=== PATIENT | female | born 1945 | race Caucasian/White ===

== ENCOUNTER 2018-11-03 08:58 | Outpatient (CLI) | payer MEDICARE ==
--- NOTE | 2018-11-03 09:56 | MMO ---
Bilateral MAMMO Bilat Screen [facility]. CLINICAL HISTORY: Patient is 73 years old and is seen for screening. The patient has no family history of breast cancer. The patient has a history of endometrial cancer. VIEWS: The views performed were: bilateral craniocaudal with tomosynthesis; bilateral mediolateral oblique with tomosynthesis; and bilateral exaggerated craniocaudal. FILMS COMPARED: The present examination has been compared to prior imaging studies performed at [facility] on 10/28/2006, 05/24/2008, 05/27/2009, 10/18/2013, 03/26/2015, 05/20/2016 and 04/21/2017, and at [facility] [place] on 11/19/2010, 12/02/2010 and 03/22/2012. MAMMOGRAM FINDINGS: The breasts are heterogeneously dense, which could obscure a lesion on mammography. There are benign appearing calcifications seen in both breasts. There are no suspicious masses, suspicious calcifications, or new areas of architectural distortion. IMPRESSION: THERE IS NO MAMMOGRAPHIC EVIDENCE OF MALIGNANCY. A ROUTINE FOLLOW-UP MAMMOGRAM IN 1 YEAR IS RECOMMENDED. THE RESULTS OF THIS EXAM WERE SENT TO THE PATIENT. ACR BI-RADS Category 2 - Benign finding MAMMOGRAPHY NOTE: 1. A negative mammogram report should not delay a biopsy if a dominant of clinically suspicious mass is present. 2. Approximately 10% to 15% of breast cancers are not detected by mammography. 3. Adenosis and dense breasts may obscure an underlying neoplasm.
--- NOTE | 2018-11-03 10:10 | BD ---
Exam: DEXA Bone Density Indication: 73-year-old female for post-menopausal osteoporosis screening. Lumbar Spine: BMD (g/cm2) L1 0.859 T-Score: -1.2 L2 1.113 T-Score: 0.8 L3 1.018 T-Score: -0.6 L4 0.973 T-Score: -0.8 L1-L4 0.988 T-Score: -0.5 Femoral Neck: 0.723 T-Score: -1.1 Total Femur: 0.901 T-Score: -0.3 Impression: 1. Bone mineral density of the femoral neck indicates osteopenia. 2. Bone mineral density of the lumbar spine within normal range. 10-year fracture risk: Major osteoporotic fracture: 12% Hip fracture: 1.7% POS: [facility]
== END 2018-11-03 08:59 | disposition home or self-care (01) ==
LOC: BICMAMMO 08:58
PROVIDERS: ATTEND Family Medicine
DX: Z12.31 Encounter for screening mammogram for malignant neoplasm of breast (principal); Z78.0 Asymptomatic menopausal state; Z01.411 Encounter for gynecological examination (general) (routine) with abnormal findings; M85.89 Other specified disorders of bone density and structure, multiple sites; Z85.89 Personal history of malignant neoplasm of other organs and systems; Z90.710 Acquired absence of both cervix and uterus
CPT/HCPCS: 77063; 77067; 77080

== ENCOUNTER 2020-01-20 02:15 | Day surgery (SDC) | payer MEDICARE ==
--- NOTE | 2020-01-20 04:18 | HP ---
DATE OF CONSULTATION: 01/20/2020 CONSULTING PROVIDER: Dr. Estevez. REASON FOR CONSULTATION: Esophageal food bolus impaction. HISTORY OF PRESENT ILLNESS: The patient is a 74-year-old female with past medical history of hypertension, osteoarthritis, impaired fasting glucose, hyperlipidemia, uterine cancer (2008), and GERD, presenting with complaints of dysphagia. She states that she was in her usual state of health until approximately 6:30 yesterday evening when she was eating steak and upon her first bite of eating steak, had a sensation that the food got stuck, located at the level of the sternal notch. Attempts to drink water, take Rolaids, drink soda were ultimately unsuccessful and ultimately prompted her to seek healthcare assistance at the [place] [facility]. While in the [place] [facility], they attempted the use of glucagon, which was also unsuccessful and ultimately transferred to [facility] in [place] for further evaluation. Upon further questioning the patient, she states that this has been happening intermittently for the last 10 years with most recent occurrence being approximately 6 months ago. However, the episodes that she has had in the past have not lasted any longer than 30 minutes and have responded to eating or drinking food stuffs in order to force the food bolus into her stomach. Currently, she states that she is unable to tolerate her own secretions and did have a cup full of saliva at bedside and this was associated with nausea and vomiting as well as odynophagia. However, she currently denies any fevers, chills, hematemesis, melena, hematochezia, diarrhea, abdominal pain, or constipation. REVIEW OF SYSTEMS: A 10-category review of systems was obtained with all responses negative except for the pertinent positives as listed in HPI. PAST MEDICAL HISTORY: As per HPI. PAST SURGICAL HISTORY: Hysterectomy. FAMILY HISTORY: Uterine cancer only in her mother, she denies any GI malignancies. SOCIAL HISTORY: Denies any tobacco, alcohol, or illicit drug use. OUTPATIENT MEDICATIONS: 1. Metoprolol 50 mg daily. 2. Lisinopril 25 mg daily. 3. Atorvastatin, unknown dosage. 4. Etodolac 400 mg daily. 5. Sinus medication. ALLERGIES: NO KNOWN DRUG ALLERGIES. PHYSICAL EXAMINATION: VITAL SIGNS: No vital signs were posted in the patient's chart for review. GENERAL: The patient was lying in bed, in no acute distress. Alert and oriented x4. HEENT: Normocephalic and atraumatic. NECK: Supple. No JVD or scleral icterus noted. CARDIOVASCULAR: Regular rate and rhythm with no discernible murmurs, gallops, or rubs. RESPIRATORY: Clear to auscultation bilaterally with no discernible wheezes or rales. ABDOMEN: Normoactive bowel sounds. Soft, nontender, and nondistended. EXTREMITIES: No cyanosis, clubbing, or edema. LABORATORY DATA: CBC with a white blood cell count of 15.3, hemoglobin 13.5, hematocrit 42.5, platelets 282. Chemistry with a sodium of 140, potassium 3.6, chloride 103, CO2 of 26, BUN 19, creatinine 0.79, glucose 152. IMAGING DATA: No current GI imaging is available for review. ASSESSMENT AND PLAN: The patient is a 74-year-old female with past medical history of hypertension, osteoarthritis, impaired fasting glucose, hyperlipidemia, uterine cancer, and gastroesophageal reflux disease, presenting with symptoms of dysphagia consistent with a food bolus impaction. Dysphagia/food bolus impaction: The patient is presenting with sudden onset of dysphagia occurring at 6:30 p.m. last night after the ingestion of steak, characterized as the sensation of it getting stuck at the level of the sternal notch. On further review, the patient has been having intermittent symptoms over the last decade with the most recent occurrence being six months ago, but all of the prior incidences resolving themselves spontaneously within 30 minutes. However, in this case, her symptoms did not resolve and manifested as odynophagia and inability to tolerate her own secretions. Attempts at drinking water, taking Rolaids, drinking soda as well as administration of glucagon at the [place] [facility] were unsuccessful. At this time, her symptoms are most consistent with a food bolus impaction with the etiology including esophageal stricture/stenosis, eosinophilic esophagitis, GERD, and/or GI neoplasm. RECOMMENDATIONS: 1. Would continue the patient at n.p.o. status in anticipation for emergent EGD. 2. Would perform emergent EGD for evaluation of the food bolus and extraction at that time. 3. The patient will likely need to be discharged on a PPI for her acid reflux symptoms, which could be potentially generating her current clinical situation. 4. Further recommendations to follow upper endoscopy. We will continue to follow. Please call with any questions. Job ID: [id number]
--- NOTE | 2020-01-20 05:08 | OP ---
DATE OF PROCEDURE: 01/20/2020 PROCEDURE PERFORMED: Esophagogastroduodenoscopy with food bolus obstruction. INDICATION FOR PROCEDURE: Esophageal food bolus obstruction/esophageal obstruction. DESCRIPTION OF PROCEDURE: After the risks and benefits of the procedure were explained to the patient including risks of bleeding, infection, perforation, reactions to anesthesia, aspiration, and/or pain, informed consent was obtained. The patient was then taken to the endoscopy suite, where she underwent general anesthesia with endotracheal tube intubation. Once the patient was sedated and intubated, she was maneuvered into the left lateral decubitus position, followed by introduction of the standard gastroscope, which was then advanced into the mouth with intubation of the esophagus, stomach, and the proximal small intestines with the findings listed below. The patient tolerated the procedure well with no immediate perioperative complications. Upon conclusion of the procedure, all equipment was removed from the patient and she was transferred to PACU in satisfactory condition. FINDINGS: Esophagus: Normal-appearing mucosa was seen in the proximal and mid esophagus; however, in the distal esophagus, a large fibrous food bolus was seen completely obstructing the esophageal lumen. Attempts at gentle pressure of the food bolus were unsuccessful in moving the bolus into the stomach. As such, Raptor forceps and Sg forceps were employed to successfully break apart and remove the food bolus via the mouth. Once the food bolus was successfully extracted, evaluation of the underlying mucosa was performed. Just proximal to the gastroesophageal junction, there was significant luminal narrowing and swelling that initially impeded the passage of the scope with increased resistance with passage, but was able to be traversed with the standard gastroscope. Ulceration and increased friability were also seen in this region with some mucosal sloughing. Based on the significant injury and swelling to this region, esophageal dilation was not performed due to increased risk of perforation. Otherwise, there was no evidence of mass lesions or active/recent bleeding. Stomach: Normal-appearing mucosa was seen in the gastric cardia, fundus, body, greater curvature, antrum, and incisura. There was no evidence of erosions, ulcerations, mass lesions, or active/recent bleeding. Duodenum: Normal-appearing mucosa was seen in both the duodenal bulb and second portion of the duodenum. There was no evidence of erosions, ulcerations, mass lesions, or active/recent bleeding. IMPRESSION: 1. Large esophageal food bolus in the distal esophagus successfully extracted with Raptor and Sg forceps. 2. Distal esophageal stricture just proximal to the GE junction consistent with either an esophageal stricture or swelling related to the food bolus impaction. This was also associated with ulceration, sloughing of the mucosa and increased friability with mild oozing of blood (no dilation performed today). RECOMMENDATIONS: 1. Would start the patient on a liquid diet for the next 48 hours and advance as tolerated to a soft mechanical diet until seen in the GI clinic. 2. Would place the patient on omeprazole 40 mg daily for potential acid reflux. 3. Would strongly encourage adequate chewing of food prior to swallowing. 4. Would have the patient follow up in the GI clinic within two weeks for re-evaluation of her dysphagia and scheduling for repeat upper endoscopy with likely dilation of the distal esophagus. 5. Once met PACU criteria, the patient could be discharged to home with followup in the GI Clinic. We will sign off at this time. Please call with any questions. Job ID: [id number]
[2020-01-20] MEDS ORDERED: PHENYLEPHRINE-NS 100 MCG/ML 10 ML SYRINGE ONE (11:53)
[2020-01-20] MEDS ORDERED: EPHEDRINE 25 MG/5 ML SYRINGE ONE (11:53)
[2020-01-20] MEDS ORDERED: PROPOFOL 200 MG/20 ML VIAL ONE (11:53)
[2020-01-20] MEDS ORDERED: Lidocaine 1% PF 5 ML VIAL ONE (11:53)
[2020-01-20] MEDS ORDERED: Ondansetron PF 4 MG/2 ML Vial ONE (11:53)
[2020-01-20] MEDS ORDERED: Succinylcholine Chloride 20 MG/ML 10 ml SYRINGE FS ONE (11:53)
[2020-01-20] MEDS ORDERED: Dexamethasone 20 MG/5 ML VIAL ONE (11:53)
== END 2020-01-20 05:36 | disposition home or self-care (01) ==
LOC: ERS 02:15 → SDC/OP 03:36
PROVIDERS: ATTEND Internal Medicine
PROC: 0DC38ZZ Extirpation of Matter from Lower Esophagus, Via Natural or Artificial Opening Endoscopic (ICD-10-PCS; principal; 2020-01-20)
DX: T18.128A Food in esophagus causing other injury, initial encounter (principal); K22.2 Esophageal obstruction; K22.10 Ulcer of esophagus without bleeding; I10 Essential (primary) hypertension; M19.90 Unspecified osteoarthritis, unspecified site; E78.5 Hyperlipidemia, unspecified; K21.9 Gastro-esophageal reflux disease without esophagitis; E11.9 Type 2 diabetes mellitus without complications; E78.00 Pure hypercholesterolemia, unspecified; Z79.84 Long term (current) use of oral hypoglycemic drugs; Z79.899 Other long term (current) drug therapy; X58.XXXA Exposure to other specified factors, initial encounter
CPT/HCPCS: J1100; J2001; J2405; J2704

== ENCOUNTER 2020-11-15 10:37 | Outpatient (CLI) | payer MEDICARE ==
[2020-11-15 11:33] LABS: Hemoglobin 13.2 g/dL (12.0-15.5)
[2020-11-15 11:47] LABS: Anion Gap 15 mmol/L (10-20); BUN (Urea Nitrogen) 18 mg/dL (9.8-20.1); Calc. Creatinine Clearance 0 mL/min (70-130); Calcium 9.7 mg/dL (7.8-10.44); Carbon Dioxide 28 mmol/L (23-31); Chloride 101 mmol/L (98-107); Glucose 95 mg/dL (83-110); Potassium 3.8 mmol/L (3.5-5.1); Sodium 140 mmol/L (136-145)
[2020-11-15 17:49] LABS: SARS-CoV-2 PCR by NAA Not Detected (NotDetected)
== END 2020-11-15 10:38 | disposition home or self-care (01) ==
LOC: LABBT 10:37
PROVIDERS: ATTEND Otolaryngology Plastic Surgery within the Head & Neck
DX: Z01.818 Encounter for other preprocedural examination (principal); J34.2 Deviated nasal septum; J34.89 Other specified disorders of nose and nasal sinuses; J34.3 Hypertrophy of nasal turbinates; R09.81 Nasal congestion; Z20.822 Contact with and (suspected) exposure to COVID-19
CPT/HCPCS: 80048; 85014; 85018; 93005; U0003; U0005; 87635; 93010

== ENCOUNTER 2020-11-20 08:24 | Day surgery (SDC) | payer MEDICARE ==
[2020-11-18 13:57] VITALS: BMI 22.4
[2020-11-20] MEDS ORDERED: AFRIN NASAL MIST 15 ML BOT ONE ×2 (08:57→10:30)
[2020-11-20] MEDS ORDERED: Bacitracin Zinc Ointment 30 gm TUBE ONE (10:30)
[2020-11-20] MEDS ORDERED: Lidocaine 1% w/Epinephrine 1:100K 20 ML VIAL ONE (10:30)
[2020-11-20] MEDS ORDERED: Famotidine/PF 20 mg/2ml Vial ONE (10:42)
[2020-11-20] MEDS ORDERED: Fentanyl 100 MCG/2 ML VIAL ONE ×2 (10:42→12:38)
[2020-11-20] MEDS ORDERED: SUGAMMADEX SODIUM 200 MG/2 ML VIAL ONE (10:52)
[2020-11-20] MEDS ORDERED: ePHEDrine Sulfate 50 MG/10 ML VIAL ONE (11:09)
[2020-11-20] MEDS ORDERED: Lidocaine 1% PF 5 ML VIAL ONE (11:09)
[2020-11-20] MEDS ORDERED: Metoclopramide HCl 10 MG/2 ML VIAL ONE (11:09)
[2020-11-20] MEDS ORDERED: Ondansetron PF 4 MG/2 ML Vial ONE (11:09)
[2020-11-20] MEDS ORDERED: Rocuronium Bromide 10 MG/ML (10ML VIAL) ONE (11:09)
[2020-11-20] MEDS ORDERED: PROPOFOL 200 MG/20 ML VIAL ONE (11:09)
[2020-11-20] MEDS ORDERED: Dexamethasone 20 MG/5 ML VIAL ONE (11:09)
[2020-11-20] MEDS ORDERED: PHENYLEPHRINE-NS 100 MCG/ML 10 ML SYRINGE ONE (11:09)
[2020-11-20] MEDS ORDERED: Hydrocodone-Acetamin 15 ML UDCUP ONE (14:35)
== END 2020-11-20 15:05 | disposition home or self-care (01) ==
LOC: SDC 08:24
PROVIDERS: ATTEND Otolaryngology Plastic Surgery within the Head & Neck
PROC: 09SM0ZZ Reposition Nasal Septum, Open Approach (ICD-10-PCS; principal; 2020-11-20)
PROC: 09TL0ZZ Resection of Nasal Turbinate, Open Approach (ICD-10-PCS; 2020-11-20)
PROC: 09QK0ZZ Repair Nasal Mucosa and Soft Tissue, Open Approach (ICD-10-PCS; 2020-11-20)
PROC: 095KXZZ Destruction of Nasal Mucosa and Soft Tissue, External Approach (ICD-10-PCS; 2020-11-20)
DX: J34.89 Other specified disorders of nose and nasal sinuses (principal); J34.2 Deviated nasal septum; J34.3 Hypertrophy of nasal turbinates; J30.0 Vasomotor rhinitis; E11.9 Type 2 diabetes mellitus without complications; M19.90 Unspecified osteoarthritis, unspecified site; Z79.899 Other long term (current) drug therapy
CPT/HCPCS: J1100; J2405; J2704; J2765; J3010; S0028

== ENCOUNTER 2022-07-18 10:54 | Inpatient (IN) | payer MEDICARE, OTHER ==
[2022-07-18 11:53] LABS: #Eosinphils 0.1 thou/uL (0.0-0.7); #Lymphocytes 2.2 thou/uL (1.20-3.40); #Monocytes 0.7 thou/uL (0.11-0.59); #Neutrophils 4.8 thou/uL (1.40-6.50); %Basophils 0.1 % (0.0-1.0); %Eosinophils 0.8 % (0.0-10.0); %Lymphocytes 27.9 % (21.0-51.0); %Monocytes 8.7 % (0.0-10.0); %Neutrophils 62.5 % (42.0-75.0); Hemoglobin 12.6 g/dL (12.0-16.0); Mean Corpuscular HGB CONC 32.7 g/dL (32.0-36.0); Mean Corpuscular Hemoglobin 29.1 pg (27.0-31.0); Mean Corpuscular Volume 89.1 fl (78.0-98.0); Mean Platelet Volume 7.9 fL (7.4-10.4); Platelet Count 259 10x3/uL (130-400); Red Blood Cell (RBC) Count 4.31 mill/uL (4.20-5.40); White Blood Cell (WBC) Count 7.7 10x3/uL (4.8-10.8)
[2022-07-18 12:14] LABS: ALT (SGPT) 27 U/L (8-55); AST (SGOT) 20 U/L (5-34); Albumin 3.9 g/dL (3.4-4.8); Alkaline Phosphatase 109 U/L (40-110); Anion Gap 16 mmol/L (10-20); BUN (Urea Nitrogen) 28 mg/dL (9.8-20.1); Bilirubin, Total 0.7 mg/dL (0.2-1.2); Calc. Creatinine Clearance 0 mL/min (70-130); Calcium 10.6 mg/dL (7.8-10.44); Carbon Dioxide 26 mmol/L (23-31); Chloride 105 mmol/L (98-107); Estimated GFR 91; Globulin 3.6 g/dL (2.4-3.5); Glucose 158 mg/dL (83-110); Lipase 44 U/L (8-78); Potassium 4.5 mmol/L (3.5-5.1); Protein, Total 7.5 g/dL (5.8-8.1); Sodium 142 mmol/L (136-145)
[2022-07-18 12:40] LABS: Bilirubin Negative (Negative); Blood, Urine Negative (Negative); Clarity Clear (Clear); Glucose, Urine (Dipstick) Normal (Negative); Ketone, Urine Negative (Negative); Leukocyte Negative Leu/uL (Negative); Nitrite Negative (Negative); Protein, Urine (Dipstick) Negative (Neg-Trace); Specific Gravity, Urine 1.014 (1.002-1.036); Urobilinogen Normal mg/dL (Less than 2); pH, Urine 5.5 (5.0-9.0)
[2022-07-18] MEDS ORDERED: Senokot S 8.6-50 MG TAB PO PRN (13:59)
[2022-07-18] MEDS ORDERED: Guaifenesin DM 100-10/5 ML UDCUP PO PRN (13:59)
[2022-07-18] MEDS ORDERED: HYDROcodone/Acetaminophen 5/325 mg Tablet PO PRN (13:59)
[2022-07-18] MEDS ORDERED: Ondansetron PF 4 MG/2 ML Vial IVP PRN (13:59)
[2022-07-18] MEDS ORDERED: Acetaminophen 325 MG TAB PO PRN (13:59)
[2022-07-18] MEDS ORDERED: Iopamidol-370 76% 500 ML 1 ML ONE (14:59)
[2022-07-18] MEDS ORDERED: Hydrocortisone Sod Succ/PF 250 mg/2 ml Vial SLOW IVP SCH (15:15)
[2022-07-18] MEDS ORDERED: Sodium Chloride 0.9% 1,000 ML IV SCH (15:15)
[2022-07-18 16:14] VITALS: BMI 19.1
[2022-07-18] MEDS: Methimazole 5 MG TAB PO SCH (19:54)
[2022-07-18] MEDS: Propranolol 40 MG TAB PO SCH (19:54)
[2022-07-18] MEDS ORDERED: Propranolol 40 MG TAB PO SCH (21:00)
[2022-07-19 05:37] LABS: ALT (SGPT) 22 U/L (8-55); AST (SGOT) 14 U/L (5-34); Albumin 3.4 g/dL (3.4-4.8); Alkaline Phosphatase 95 U/L (40-110); Anion Gap 13 mmol/L (10-20); BUN (Urea Nitrogen) 23 mg/dL (9.8-20.1); Bilirubin, Total 0.7 mg/dL (0.2-1.2); Calc. Creatinine Clearance 74 mL/min (70-130); Calcium 9.7 mg/dL (7.8-10.44); Carbon Dioxide 24 mmol/L (23-31); Chloride 108 mmol/L (98-107); Estimated GFR 95; Globulin 3.1 g/dL (2.4-3.5); Glucose 109 mg/dL (83-110); Potassium 3.6 mmol/L (3.5-5.1); Protein, Total 6.5 g/dL (5.8-8.1); Sodium 141 mmol/L (136-145)
[2022-07-19] MEDS: Hydrocortisone Sod Succ/PF 100 mg/2 ml Vial IVP SCH ×3 (05:51→20:34)
[2022-07-19 05:53] LABS: Free T4 (Free Thyroxine) 3.17 ng/dL (0.70-1.48)
[2022-07-19] MEDS ORDERED: Enoxaparin Sodium 40 MG/0.4 ML SYRINGE SC SCH (09:00)
[2022-07-19] MEDS ORDERED: Lisinopril 20 MG TAB PO SCH ×2 (09:00→21:00)
[2022-07-19] MEDS: Atorvastatin Calcium 10 MG TAB PO SCH (09:06)
[2022-07-19] MEDS: Propranolol 40 MG TAB PO SCH ×3 (09:06→20:32)
[2022-07-19] MEDS: Methimazole 5 MG TAB PO SCH ×2 (09:07→20:33)
[2022-07-19] MEDS: Fluticasone Propionate Nasal Spray 16 gm Bottle NASAL PRN (12:11)
[2022-07-20] MEDS: Hydrocortisone Sod Succ/PF 100 mg/2 ml Vial IVP SCH (05:34)
[2022-07-20] MEDS ORDERED: ALPRAZolam 0.25 MG TAB PO PRN (08:38)
[2022-07-20] MEDS ORDERED: cloNIDine 0.1 MG TAB PO PRN (08:39)
[2022-07-20] MEDS ORDERED: Atenolol 50 MG TAB PO SCH (09:00)
[2022-07-20] MEDS ORDERED: Lisinopril/Hydrochlorothiazide 20 mg/12.5 mg Tablet PO SCH (09:00)
[2022-07-20] MEDS ORDERED: Heparin 5,000 UNITS/ML VIAL SC SCH (09:00)
[2022-07-20] MEDS: Atorvastatin Calcium 10 MG TAB PO SCH (09:51)
[2022-07-20] MEDS: Methimazole 5 MG TAB PO SCH (09:52)
[2022-07-20] MEDS: Fluticasone Propionate Nasal Spray 16 gm Bottle NASAL PRN (09:57)
[2022-07-20 13:39] VITALS: BP 148/70; TEMP 98
== END 2022-07-20 14:40 | disposition home or self-care (01) | DRG 644 ==
LOC: ERS 10:54 → 2SW 13:59 → OBSVTOIN 15:09
PROVIDERS: ADMIT Hospitalist; ATTEND Internal Medicine
DX: E05.91 Thyrotoxicosis, unspecified with thyrotoxic crisis or storm (principal); Z68.1 Body mass index [BMI] 19.9 or less, adult; Z20.822 Contact with and (suspected) exposure to COVID-19; I10 Essential (primary) hypertension; E78.5 Hyperlipidemia, unspecified; R73.03 Prediabetes; R63.4 Abnormal weight loss; Z90.710 Acquired absence of both cervix and uterus; Z79.899 Other long term (current) drug therapy
CPT/HCPCS: 36415; 71045; 71260; 74177; 76536; 80053; 81003; 83690; 83880; 84439; 84443; 84481; 84484; 85025; 85379; 93005; 93306; J1644; J1650; J1720; J7050; Q9967; U0003; U0005

== ENCOUNTER 2022-12-15 16:49 | Emergency (ER) | payer MEDICARE ==
[~2022-12-15 16:49] MED LIST: Iopamidol-370 76% 500 ML MDV (1 ML CHARGE) ONE
[2022-12-15 17:44] LABS: #Monocytes 1.2 thou/uL (0.11-0.59); #Neutrophils 14.1 thou/uL (1.40-6.50); %Basophils 0.2 % (0.0-1.0); %Lymphocytes 11.1 % (21.0-51.0); %Monocytes 7.2 % (0.0-10.0); %Neutrophils 81.2 % (42.0-75.0); Hemoglobin 13.2 g/dL (12.0-16.0); Mean Corpuscular HGB CONC 33.1 g/dL (32.0-36.0); Mean Corpuscular Hemoglobin 28.7 pg (27.0-31.0); Mean Corpuscular Volume 86.7 fl (78.0-98.0); Mean Platelet Volume 9.1 fL (7.4-10.4); Platelet Count 268 10x3/uL (130-400); RBC Distribution Width 12.7 % (11.5-14.5); White Blood Cell (WBC) Count 17.3 10x3/uL (4.8-10.8)
[2022-12-15 18:06] LABS: ALT (SGPT) 15 U/L (8-55); AST (SGOT) 14 U/L (5-34); Alkaline Phosphatase 173 U/L (40-110); Anion Gap 15 mmol/L (10-20); BUN (Urea Nitrogen) 19 mg/dL (9.8-20.1); Bilirubin, Total 0.8 mg/dL (0.2-1.2); Calc. Creatinine Clearance 0 mL/min (70-130); Calcium 9.2 mg/dL (7.8-10.44); Carbon Dioxide 23 mmol/L (23-31); Chloride 100 mmol/L (98-107); Estimated GFR 69; Globulin 3.9 g/dL (2.4-3.5); Glucose 169 mg/dL (83-110); Lipase 17 U/L (8-78); Potassium 3.5 mmol/L (3.5-5.1); Protein, Total 7.9 g/dL (5.8-8.1); Sodium 134 mmol/L (136-145)
[2022-12-15 19:10] LABS: Bilirubin Negative (Negative); Blood, Urine Negative (Negative); Clarity Turbid (Clear); Glucose, Urine (Dipstick) Normal (Negative); Ketone, Urine Negative (Negative); Leukocyte 500 Leu/uL (Negative); Mucous/LPF Rare LPF (<2+); Nitrite Negative (Negative); Protein, Urine (Dipstick) 20 mg/dL (Neg-Trace); RBC/HPF 0-3 HPF (0-3); Renal Epithelial 0-3 HPF (None Seen); Specific Gravity, Urine 1.024 (1.002-1.036); Urobilinogen Normal mg/dL (Less than 2); pH, Urine 5.5 (5.0-9.0)
[2022-12-15 19:27] LABS: Bacteria/HPF 2+ HPF (None Seen)
[2022-12-16 11:23] LABS: Campy jejuni + coli by PCR POSITIVE (Negative); STEC Shiga Toxin 1+2 Negative (Negative); Salmonella spp. by PCR Negative (Negative); Shigella spp + EIEC by PCR Negative (Negative)
== END 2022-12-15 20:12 | disposition home or self-care (01) ==
LOC: ERS 16:49
DX: R19.7 Diarrhea, unspecified (principal); N39.0 Urinary tract infection, site not specified; D72.829 Elevated white blood cell count, unspecified; E78.00 Pure hypercholesterolemia, unspecified; I10 Essential (primary) hypertension; E03.9 Hypothyroidism, unspecified
CPT/HCPCS: 36415; 74177; 80053; 81003; 81015; 83690; 85025; 87505; Q9967

== ENCOUNTER 2023-03-17 09:09 | Outpatient (CLI) | payer MEDICARE | END 2023-03-17 09:10 | disposition home or self-care (01) | LOC: BICMAMMO 09:09 | PROVIDERS: ATTEND Family Medicine | DX: Z12.31 Encounter for screening mammogram for malignant neoplasm of breast (principal); Z13.820 Encounter for screening for osteoporosis; M85.89 Other specified disorders of bone density and structure, multiple sites; Z78.0 Asymptomatic menopausal state; Z85.42 Personal history of malignant neoplasm of other parts of uterus | CPT/HCPCS: 77063; 77067; 77080 ==

== ENCOUNTER 2023-05-27 11:41 | Day surgery (SDC) | payer MEDICARE ==
[2023-05-26 10:31] VITALS: BMI 21.2
[2023-05-27] MEDS ORDERED: Lidocaine 1% PF 5 ML VIAL ONE (13:59)
[2023-05-27] MEDS ORDERED: PROPOFOL 200 MG/20 ML VIAL ONE (13:59)
== END 2023-05-27 16:12 | disposition home or self-care (01) ==
LOC: SDC 11:41
PROVIDERS: ATTEND Internal Medicine Gastroenterology
PROC: 0DBN8ZX Excision of Sigmoid Colon, Via Natural or Artificial Opening Endoscopic, Diagnostic (ICD-10-PCS; principal; 2023-05-27)
DX: Z12.11 Encounter for screening for malignant neoplasm of colon (principal); K58.0 Irritable bowel syndrome with diarrhea; K63.5 Polyp of colon; K63.89 Other specified diseases of intestine; E11.9 Type 2 diabetes mellitus without complications; I10 Essential (primary) hypertension; Z79.899 Other long term (current) drug therapy; Z79.84 Long term (current) use of oral hypoglycemic drugs
CPT/HCPCS: 88305; J2704

== ENCOUNTER 2024-07-31 08:24 | Outpatient (CLI) | payer MEDICARE | END 2024-07-31 08:25 | disposition home or self-care (01) | LOC: CT 08:24 | PROVIDERS: ATTEND Family Medicine | DX: J35.1 Hypertrophy of tonsils (principal); R90.89 Other abnormal findings on diagnostic imaging of central nervous system | CPT/HCPCS: 70491 ==